=== PATIENT | female | born 1975 | race African-American/Black ===

== ENCOUNTER 2017-08-30 05:26 | Emergency (ER) | payer MEDICAID ==
[~2017-08-30] VITALS: Ht 162.6 cm; Wt 82.0 kg
[2017-08-30] MEDS ORDERED: LIDOCAINE HCL 1% 20ML VIAL (Pyxis) INJ INFIL ONE (09:15)
[2017-08-30] MEDS ORDERED: TETANUS, DIPHTHERIA, PERTUSSIS VAC/PF 0.5ML (>7YR OLD) IM ONE (09:15)
[2017-08-30 09:29] LABS: HEMATOCRIT. 43.6 % (36.0-48.0); HEMOGLOBIN. 14.5 g/dL (12.0-16.0); MEAN CORPUSCULAR HEMOGLOBIN 28.1 pg (28.0-32.0); MEAN CORPUSCULAR VOLUME 84.2 fL (81.0-99.0); PLATELET 356 x1000/uL (130-400); RED BLOOD CELL COUNT 5.18 mill/uL (4.2-5.4); RED CELL DISTRIBUTION WIDTH 14.5 % (11.6-14.6)
[2017-08-30 09:40] LABS: CHLORIDE 102 mEq/L (98-107)
[2017-08-30] MEDS ORDERED: LIDOCAINE HCL/PF 1% 10 MG/ML 5ML VIAL IJ ONE (10:21)
[2017-08-30] MEDS ORDERED: ONDANSETRON 4MG ODT PO ONE (11:45)
[2017-08-30] MEDS ORDERED: MORPHINE SULFATE 4 MG/ML CPJ (NOT FOR IM USE) IV ONE ×2 (11:45)
[2017-08-30 12:00] LABS: PLATELET ESTIMATE NORMAL
[2017-08-30] MEDS ORDERED: BACITRACIN ZINC OINT UDPKT TOP ONE ×2 (13:15→14:15)
[2017-08-30 14:26] LABS: CLARITY URINE CLEAR (CLEAR); COLOR URINE YELLOW (YELLOW); KETONES URINE TRACE (NEGATIVE); LEUKOCYTE ESTERASE URINE TRACE (NEGATIVE); NITRITE URINE NEGATIVE (NEGATIVE); OCCULT BLOOD URINE 2+ (NEGATIVE); PROTEIN URINE 1+ (NEGATIVE); SPECIFIC GRAVITY URINE 1.011 (1.005-1.030); UROBILINOGEN URINE 0.2 E.U./dL (0.2-1.0)
[2017-08-30 17:30] VITALS: BP 158/101
== END 2017-08-30 18:35 | disposition home or self-care (01) ==
LOC: ER 05:36
DX: S81.012A Laceration without foreign body, left knee, initial encounter (principal); N12 Tubulo-interstitial nephritis, not specified as acute or chronic; N19 Unspecified kidney failure; R19.7 Diarrhea, unspecified; S80.211A Abrasion, right knee, initial encounter; Y04.1XXA Assault by human bite, initial encounter; I10 Essential (primary) hypertension; Z23 Encounter for immunization
CPT/HCPCS: 12002; 36415; 70450; 74176; 80053; 81003; 81025; 83690; 85025; 90471; 90715; 96374; 99285; J2270; J3490; Q0162; Z7610

== ENCOUNTER 2017-09-08 10:52 | Emergency (ER) | payer MEDICAID ==
[~2017-09-08] VITALS: Ht 162.6 cm; Wt 64.0 kg
[2017-09-08 15:14] VITALS: BP 174/99
[2017-09-08] MEDS ORDERED: IBUPROFEN 600MG TABLET PO ONE (15:15)
== END 2017-09-08 15:27 | disposition home or self-care (01) ==
LOC: ER 13:13
DX: H61.20 Impacted cerumen, unspecified ear (principal); Z48.02 Encounter for removal of sutures; I10 Essential (primary) hypertension
CPT/HCPCS: 99283; Z7610